=== PATIENT | female | born 1980 | race Caucasian/White ===

== ENCOUNTER 2022-09-02 16:30 | Observation (INO) ==
[2022-09-02] MEDS ORDERED: ONDANSETRON 4 MG/2 ML VIAL ONE ×2 (17:03→17:06)
[2022-09-02] MEDS ORDERED: SODIUM CHLORIDE 0.9% 1,000 ML IV STA ×2 (17:07→18:04)
[2022-09-02] MEDS ORDERED: ONDANSETRON 4 MG/2 ML VIAL IV STA (17:07)
[2022-09-02 17:19] LABS: Basophils % 0.1 % (0.0-0.8); Hematocrit 38.6 VOL% (35.7-47.0); Hemoglobin 12.2 GM/DL (12.0-16.0); Immature Granulocytes % 0.4 %; Immature Granulocytes Absolute 0.06 #; Lymphocytes # 1.4 10*3/uL (1.4-4.0); Lymphocytes % 9.5 % (21.3-54.2); Mean Corpuscular HGB Conc 31.6 GM/DL (32-36); Mean Corpuscular Volume 82.3 FL (87-102); Mean Platelet Volume 10.7 FL (9.6-12.0); Monocytes # 0.7 10*3/uL (0.11-0.8); Monocytes % 4.5 % (1.7-12.7); Neutrophils % 85.5 % (38.7-73.9); Platelet Count 421 T/CUMM (130-400); Red Blood Count 4.69 MC/CUMM (3.8-5.5); Red Cell Distribution Width 15.2 % (9.3-17.3); White Blood Count 14.7 T/CUMM (4-12)
[2022-09-02 17:54] LABS: Alanine Aminotransferase 49 U/L (13-56); Albumin 3.5 G/DL (3.4-5.0); Alkaline Phosphatase 78 U/L (45-117); Amylase 40 U/L (25-115); Aspartate Amino Transferase 35 U/L (0-37); Blood Urea Nitrogen 10 MG/DL (7-18); Calcium 9.2 MG/DL (8.5-10.1); Carbon Dioxide 25 MMOL/L (21-32); Chloride 105 MMOL/L (98-107); Glucose 136 MG/DL (74-106); Osmolality,Calculated 273.8 MOS/KG (273-304); Sodium 137 MMOL/L (136-145)
[2022-09-02 18:44] LABS: Bilirubin,Urine Negative (Negative); Blood, Urine Trace mg/dL (Negative); Glucose,Urine (UA) Negative (Negative); Ketones,Urine 40 mg/dL (Negative); Nitrite,Urine Negative (Negative); Protein,Urine Negative (Negative); Urine Appearance Clear (Clear); Urine Color Yellow (Yellow); Urine Specific Gravity 1.025 (1.001-1.035)
[2022-09-02 18:45] LABS: Urine Urobilinogen 0.2 eU/dL (<2.0)
[2022-09-02 18:47] LABS: Bacteria,Urine Occasional /HPF (Few); Mucus,Urine Occasional /LPF (Occasional); RBC,Urine 2 /HPF (0-4); Squamous Epithelial Cell,Urine Occasional /HPF (0-10)
[2022-09-02] MEDS ORDERED: PROMETHAZINE 25 MG/1 ML VIAL ONE (19:16)
[2022-09-02] MEDS ORDERED: PROMETHAZINE INJ 12.5 MG in SODIUM CHLORIDE 0.9% 50 ML IV STA (19:17)
[2022-09-02] MEDS ORDERED: ACETAMINOPHEN 325 MG TABLET PO PRN (20:50)
[2022-09-02] MEDS ORDERED: ALUMINUM/MAGNES/SIMETH MAX STR 30 ML UDCUP PO PRN (20:50)
[2022-09-02] MEDS ORDERED: PROMETHAZINE 25 MG/1 ML VIAL IM PRN (20:50)
[2022-09-02] MEDS ORDERED: MAGNESIUM SULF RIDER 2 GM/50 ML PREMIX IV ONE (20:54)
[2022-09-02] MEDS: SODIUM CHLORIDE 0.9% 1,000 ML IV SCH (21:46)
[2022-09-02] MEDS: PANTOPRAZOLE 40 MG VIAL IV SCH (21:47)
[2022-09-02 22:01] LABS: Barbiturates Screen,Urine Negative (Negative); Benzodiazepines Screen,Urine Negative (Negative); Cannabinoid Screen,Urine Positive (Negative); Opiate Screen,Urine Negative (Negative); Phencyclidine Screen,Urine Negative (Negative)
[2022-09-03 06:15] LABS: Basophils % 0.1 % (0.0-0.8); Hematocrit 36.8 VOL% (35.7-47.0); Immature Granulocytes % 0.5 %; Immature Granulocytes Absolute 0.09 #; Lymphocytes # 1.1 10*3/uL (1.4-4.0); Mean Corpuscular HGB Conc 32.6 GM/DL (32-36); Mean Corpuscular Volume 82.1 FL (87-102); Mean Platelet Volume 10.8 FL (9.6-12.0); Monocytes # 0.7 10*3/uL (0.11-0.8); Monocytes % 3.8 % (1.7-12.7); Neutrophils % 89.6 % (38.7-73.9); Platelet Count 395 T/CUMM (130-400); Red Blood Count 4.48 MC/CUMM (3.8-5.5); Red Cell Distribution Width 14.9 % (9.3-17.3); White Blood Count 17.8 T/CUMM (4-12)
[2022-09-03] MEDS: SODIUM CHLORIDE 0.9% 1,000 ML IV SCH ×3 (06:39→14:31)
[2022-09-03] MEDS: ONDANSETRON 4 MG/2 ML VIAL IV PRN ×2 (06:40→08:56)
[2022-09-03 06:59] LABS: Calcium 8.2 MG/DL (8.5-10.1); Osmolality,Calculated 270.1 MOS/KG (273-304); Potassium 3.7 MMOL/L (3.5-5.1); Thyroid Stimulating Hormone 1.03 uIU/ml (0.358-3.74)
[2022-09-03] MEDS: PANTOPRAZOLE 40 MG VIAL IV SCH ×2 (08:56→22:19)
[2022-09-03] MEDS: LEVOFLOXACIN INJ 500 MG/100 ML PREMIX IV SCH (10:28)
[2022-09-03] MEDS ORDERED: hydrALAZINE 20 MG/1 ML VIAL IV PRN (12:16)
[2022-09-03] MEDS: LOSARTAN 25 MG TABLET PO SCH (22:18)
[2022-09-04] MEDS: SODIUM CHLORIDE 0.9% 1,000 ML IV SCH ×3 (02:14→17:17)
[2022-09-04 05:43] LABS: Basophils % 0.2 % (0.0-0.8); Hematocrit 33.1 VOL% (35.7-47.0); Hemoglobin 10.5 GM/DL (12.0-16.0); Immature Granulocytes % 0.2 %; Immature Granulocytes Absolute 0.02 #; Lymphocytes % 32.5 % (21.3-54.2); Mean Corpuscular HGB Conc 31.7 GM/DL (32-36); Monocytes # 1.1 10*3/uL (0.11-0.8); Monocytes % 11.6 % (1.7-12.7); Neutrophils % 55.5 % (38.7-73.9); Platelet Count 325 T/CUMM (130-400); Red Blood Count 3.94 MC/CUMM (3.8-5.5); Red Cell Distribution Width 15.2 % (9.3-17.3); White Blood Count 9.3 T/CUMM (4-12)
[2022-09-04 06:15] LABS: Osmolality,Calculated 281.1 MOS/KG (273-304); Potassium 3.3 MMOL/L (3.5-5.1)
[2022-09-04] MEDS ORDERED: POTASSIUM CHLORIDE 20 MEQ TABLET PO ONE (08:00)
[2022-09-04] MEDS: PANTOPRAZOLE 40 MG VIAL IV SCH ×2 (08:39→21:41)
[2022-09-04] MEDS: LOSARTAN 25 MG TABLET PO SCH ×2 (10:15→21:41)
[2022-09-04] MEDS ORDERED: LACTATED RINGERS 1,000 ML IV SCH (11:57)
[2022-09-04] MEDS ORDERED: propofoL 200 MG/20 ML VIAL IV ONE (14:20)
[2022-09-04] MEDS ORDERED: LIDOCAINE 2% 5 ML VIAL ONE (14:20)
[2022-09-04] MEDS: LEVOFLOXACIN INJ 500 MG/100 ML PREMIX IV SCH (15:34)
[2022-09-05] MEDS: SODIUM CHLORIDE 0.9% 1,000 ML IV SCH (02:16)
[2022-09-05 05:26] LABS: Basophils % 0.3 % (0.0-0.8); Hematocrit 33.4 VOL% (35.7-47.0); Hemoglobin 10.5 GM/DL (12.0-16.0); Immature Granulocytes % 0.1 %; Immature Granulocytes Absolute 0.01 #; Lymphocytes # 3.3 10*3/uL (1.4-4.0); Mean Corpuscular HGB Conc 31.4 GM/DL (32-36); Mean Corpuscular Volume 83.9 FL (87-102); Mean Platelet Volume 10.5 FL (9.6-12.0); Monocytes # 1.1 10*3/uL (0.11-0.8); Monocytes % 10.7 % (1.7-12.7); Neutrophils % 56.9 % (38.7-73.9); Platelet Count 317 T/CUMM (130-400); Red Blood Count 3.98 MC/CUMM (3.8-5.5); White Blood Count 10.2 T/CUMM (4-12)
[2022-09-05 05:51] LABS: Calcium 7.9 MG/DL (8.5-10.1); Osmolality,Calculated 279.3 MOS/KG (273-304); Potassium 3.6 MMOL/L (3.5-5.1)
[2022-09-05 07:32] VITALS: BP 136/74
[2022-09-05] MEDS: LOSARTAN 25 MG TABLET PO SCH (10:01)
[2022-09-05] MEDS: PANTOPRAZOLE 40 MG VIAL IV SCH (10:02)
== END 2022-09-05 11:00 | disposition home or self-care (01) ==
LOC: N.EDINP 16:30 → N.ED 16:30 → SUATTDRO 20:50 → N.EDINP 22:18 → N.3E 22:49
PROVIDERS: ADMIT Hospitalist; ATTEND Internal Medicine Geriatric Medicine